=== PATIENT | male | born 1950 | race Caucasian/White ===

== ENCOUNTER 2016-11-09 18:21 | Emergency (ER) | payer MEDICARE ==
--- NOTE | ~2016-11-09 | EKG ---
PATIENT: VON CLEVELAND UNIT #: [id number] Ventricular Rate: 81 BPM Atrial Rate: 81 BPM P-R Interval: 158 ms QRS Duration: 82 ms Q-T Interval: 396 ms QTC Calculation(Bezet): 460 ms P [place]: 50 degrees Calculated R [place]: 11 degrees Calculated T [place]: 69 degrees Diagnosis Line: Normal sinus rhythm Diagnosis Line: Non Specific ST Changes- Abnormality Inferolateral Diagnosis Line: leads Diagnosis Line: Abnormal ECG Diagnosis Line: When compared with ECG of 26-AUG-2016 05:38, Diagnosis Line: No significant change was found Diagnosis Line: Confirmed by ROMAN PAYNE MD ([id number]) on Diagnosis Line: 12/25/2016 4:06:23 PM INTERPRETING MD: EVERETT
[~2016-11-09 18:21] MED LIST: A/B OTIC AD; AMLODIPINE BESYL5 MG PO; ATENOLOL; ATENOLOL50 MG PO; AZULFIDINE PO; BENZONATATE200 M1; CORTISPORIN-TC10 ML AD; DIOVAN HCT 160/1 TAB; DOXYCYCLINE HY100 M3; FOLIC ACID PO; GLUCOPHAGE850 MG PO; HUMIRA20 MG/0.4 SQ; HYDROCHLOROTHIA25 MG PO; HYDROCODON-ACE1 EAC7; HYDROCODON-ACE1 EAC7 PO; LEVAQUIN750 M1 PO; LISINOPRIL PO; LISINOPRIL-HCTZ1 T15 PO; METHOTREXATE2.5 MG PO; METHYLPREDNISONE; PREDNISONE PO; SKELAXIN; VICODIN 5/500 T1 TAB
== END 2016-11-09 19:18 | disposition home or self-care (01) ==
LOC: SED 18:21
DX: I10 Essential (primary) hypertension (principal); E11.9 Type 2 diabetes mellitus without complications; M06.9 Rheumatoid arthritis, unspecified; F17.200 Nicotine dependence, unspecified, uncomplicated; Z88.5 Allergy status to narcotic agent; Z91.040 Latex allergy status; Z79.899 Other long term (current) drug therapy
CPT/HCPCS: 82947; 93005; 99283

== ENCOUNTER → 2016-11-18 | Outpatient (CLI) | payer MEDICARE ==
--- NOTE | ~2016-11-18 | US77 ---
[facility] A Service of [facility] RADIOLOGY TEXT RESULTS PATIENT: VON CLEVELAND LOCATION: [facility] : 49 UNIT #: [id number] AGE: [address]: JUAN DOUGLAS MD SEX: M ORDER DR: [id number] [place] [id number] P MR#: [id number] Acc #: [id number] NAME: VON CLEVELAND : 1950 SEX: M STUDY DATE/TIME: 11/18/2016 10:39 UNIT: [facility] ROOM: STUDY DESCRIPTION: US Kidney Bilateral Complete Ordering Physician: Radha Douglas M.D. Primary Care Physician: Radha Douglas M.D. MEDICAL IMAGING REPORT This report is preliminary unless electronic signature is present. EXAM Renal ultrasound. INDICATION Hypertension for 3 weeks. TECHNIQUE Davis-scale and color Doppler sonographic images were obtained through the kidneys and bladder. FINDINGS Right kidney is normal in appearance. No solid or cystic renal masses are seen and there is no hydronephrosis. This patient does have a left renal cyst measuring 2.4 x 1.9 x 2.0 cm. No solid renal masses are identified and there is no hydronephrosis. Patient's bladder appears unremarkable. IMPRESSION Left renal cyst. Otherwise, unremarkable exam. Dictated by... Nelia Blackmon M.D. THIS IS AN ELECTRONICALLY VERIFIED REPORT Nelia Blackmon M.D. at 11/18/2016 4:39 PM AFF/tmw TD: 11/18/2016 14:58 JOB #: [id number] MEDICAL IMAGING REPORT
== END | disposition home or self-care (01) ==
LOC: SGUS 07:33
DX: I10 Essential (primary) hypertension (principal); N28.1 Cyst of kidney, acquired
CPT/HCPCS: 76775

== ENCOUNTER → 2016-11-24 | Outpatient (CLI) | payer MEDICARE ==
--- NOTE | ~2016-11-24 | US78 ---
[facility] A Service of [facility] RADIOLOGY TEXT RESULTS PATIENT: VON CLEVELAND LOCATION: [facility] : 48 UNIT #: [id number] AGE: [address]: JUAN DOUGLAS MD SEX: M ORDER DR: [id number] [facility] [address] [place], [place] [address] [id number] O MR#: [id number] Acc #: [id number] NAME: VON CLEVELAND. : 1950 SEX: M STUDY DATE/TIME: 11/24/2016 9:08 UNIT: [facility] ROOM: STUDY DESCRIPTION: US Kidney Duplex Complete Attending Physician: Radha Douglas M.D. Referring Physician: Radha Douglas M.D. Ordering Physician: Radha Douglas M.D. Primary Care Physician: Radha Douglas M.D. MEDICAL IMAGING REPORT This report is preliminary unless electronic signature is present DATE OF EXAMINATION 11/24/2016 EXAM Renal artery duplex scan, bilateral. CLINICAL HISTORY Uncontrolled hypertension. FINDINGS The aortic velocity is 143 cm/sec. The right renal artery velocity measures: Proximal 324/81 cm/sec, mid 198/31 cm/sec, distal 176/38 cm/sec. The right segmental artery is 46/13 cm/sec and arcuate 33/10 cm/sec. The right renal to aortic ratio is 2.2. The right kidney measures 14 x 5 x 6.2 cm. The left renal artery has the following velocities: Proximal 98/19 cm/sec, mid 133/51 cm/sec, distal 147/48 cm/sec. The left segmental artery is 55/13 cm/sec and arcuate 31/11 cm/sec. The left renal to aortic ratio is 1.0. The left kidney measures 12.2 x 5.1 cm. IMPRESSION 1. Based on velocities, there appears to be greater than 60% stenosis of the right renal artery at it proximal portion. 2. No evidence of left renal artery stenosis by duplex criteria. 3. Both kidneys appear to be of normal size. Dictated by... Kenneth Hobson M.D. [facility] A Service of [facility] RADIOLOGY TEXT RESULTS PATIENT: VON CLEVELAND [facility] #: [id number] : [birth year] UNIT #: [id number] AGE: [address]: JUAN DOUGLAS MD SEX: M ORDER DR: THIS IS AN ELECTRONICALLY VERIFIED REPORT Kenneth Hobson M.D. at 11/28/2016 11:45 AM GREER/anthony TD: 11/24/2016 16:55 JOB #: [id number] MEDICAL IMAGING REPORT COPY
== END | disposition home or self-care (01) ==
LOC: CNIV 08:47
DX: I10 Essential (primary) hypertension (principal)
CPT/HCPCS: 93975

== ENCOUNTER → 2016-12-21 | Outpatient (CLI) | payer MEDICARE ==
--- NOTE | ~2016-12-21 | TH ---
Unit #: [id number] #: [id number] Patient: VON CLEVELAND [id number] [address] [address] [id number] O MR#: [id number] NAME: VON CLEVELAND. : 1950 SEX: M STUDY DATE/TIME: 12/21/2016 UNIT: [facility] ROOM: STUDY DESCRIPTION: Cardiolite imaging. Attending Physician: Luis Murphy M.D. Referring Physician: Luis Murphy M.D. Primary Care Physician: Radha Lopez M.D. CARDIOLOGY REPORT EXAM Cardiolite imaging. Results included in stress test portion. Dictated by... Cruz Montiel M.D. PJR/gz TD: 12/22/2016 08:10 JOB #: [id number] CARDIOLOGY REPORT Page 1 of 1 X Cruz Montiel MD CARDIOLOGY REPORT
--- NOTE | ~2016-12-21 | ST ---
Unit #: [id number] #: [id number] Patient: VON CLEVELAND [id number] [id number] [facility]. [place], [place] [address] [id number] O MR#: [id number] NAME: VON CLEVELAND. : 1950 SEX: M STUDY DATE/TIME: 12/21/2016 UNIT: [facility] ROOM: STUDY DESCRIPTION: Cardiac stress test. Attending Physician: Luis Murphy M.D. Referring Physician: Luis Murphy M.D. Primary Care Physician: Radha Lopez M.D. CARDIOLOGY REPORT EXAM Cardiac stress test. INDICATION FOR STUDY Hypertension, dyslipidemia, family history of coronary disease, discontinued smoking 10/2016, with abnormal resting ECG for diagnosis of obstructive coronary disease. SUMMARY The patient exercised on a Derick protocol to maximal effort. The resting ECG showed flattened T waves in 1 and inverted T waves in AVL. With stress there was 0.5 mm horizontal to upsloping ST depression in leads 1, 3, V6, with upsloping ST depression in leads 2 and AVF. With stress all of these leads started to show more horizontal ST depression, still 0.5-1.0 mm. Heart rate increased from 77 to 144 (94%), and blood pressure increased 149/78 to 292/70. There was no chest pain noted. The patient completed 4 minutes 45 seconds of exercise. Technetium 99m Cardiolite 12.0 and 35.7 mCi was injected at rest and stress respectively. Appropriate views were obtained. FINDINGS The study is adequate. There is no significant patient motion noted during acquisition of the rest or stress images. Perfusion images demonstrate severe decrease in perfusion in the inferior wall from the base of the mid ventricle at rest, with improved perfusion with stress in the inferior wall. Other salas are normal at both rest and stress. Gated perfusion wall motion analysis demonstrates end-diastolic volume 115 ml, quantitative ejection fraction 43%. Qualitatively the ejection fraction appears to be 50%-55%. The planar imaging demonstrates upper normal to mildly enlarged left ventricular, with normal right ventricle and no increased lung uptake. Summed stress scores is zero. IMPRESSION 1. Stress ECG shows minimal changes, likely related to hypertensive blood pressure response. 2. Severe deconditioning based on the patient's age. 3. Normal heart rate response. 4. Significant and severe hypertensive blood pressure response. 5. Stress nuclear study shows no evidence of ischemia or infarction. 6. Borderline left ventricular enlargement, with probably normal left ventricular function. Consider echo if clinically indicated for confirmation of ejection fraction. Unit #: [id number] #: [id number] Patient: VON C[place]AND Dictated by... Cruz Montiel M.D. PJR/gz TD: 12/22/2016 07:59 JOB #: [id number] CARDIOLOGY REPORT Page 1 of 1 X Cruz Montiel MD CARDIOLOGY REPORT
== END | disposition home or self-care (01) ==
LOC: CNUC 08:33
DX: R07.9 Chest pain, unspecified (principal); I10 Essential (primary) hypertension; E78.5 Hyperlipidemia, unspecified; I51.7 Cardiomegaly
CPT/HCPCS: 78452; 93017; 93306; A9500